=== PATIENT | male | born 1990 | race Two or more races ===

== ENCOUNTER 2019-03-31 19:57 | Emergency (ER) | payer MEDICAID ==
[~2019-03-31] VITALS: Ht 162.6 cm; Wt 71.8 kg
[2019-03-31 20:03] VITALS: BP 131/95
[2019-03-31] MEDS ORDERED: AZITHROMYCIN 500 MG TABLET PO ONE (20:30)
[2019-03-31] MEDS ORDERED: CEFTRIAXONE 250 MG IM ONE (20:30)
[2019-03-31] MEDS ORDERED: CEFTRIAXONE 250 MG ONE (20:31)
[2019-03-31] MEDS ORDERED: AZITHROMYCIN 500 MG TABLET ONE (20:31)
== END 2019-03-31 21:09 | disposition home or self-care (01) ==
LOC: ED 21:03
DX: Z20.2 Contact with and (suspected) exposure to infections with a predominantly sexual mode of transmission (principal)
CPT/HCPCS: 96372; 99283; J0696

== ENCOUNTER 2020-07-03 00:45 | Emergency (ER) | payer SELFPAY ==
[~2020-07-03] VITALS: Ht 162.6 cm; Wt 61.9 kg
[2020-07-03 00:48] VITALS: BP 137/82
[2020-07-03] MEDS ORDERED: ONDANSETRON 2MG/ML, 2ML ONE (01:17)
[2020-07-03] MEDS ORDERED: MORPHINE SULFATE 4 MG/ML, 1ML ONE (01:18)
--- NOTE | 2020-07-03 01:22 | NUR ---
pt in bed, c/o pain to abdomen, both sides lower abdomen. pt a&ox4, in bed, with call light at bedside. piv to right hand started x1 attempt with 18g, and pt tolerated well. blood drawn and sent to lab at same time. pt medicated for pain and nausea and tolerated meds well.
[2020-07-03 01:24] LABS: BASOPHILS % (AUTO) 1 % (0-1); EOSINOPHILS % (AUTO) 0 % (1-7); LYMPHOCYTES % (AUTO) 21 % (22-44); MEAN CORPUSCULAR HEMOGLOBIN 29.8 pg (27.5-34.5); MEAN PLATELET VOLUME 8.6 fL (7.4-10.4); MONOCYTES % (AUTO) 5 % (2-9); NEUTROPHILS % (AUTO) 73 % (42-75); PLATELET COUNT 215 x10^3/uL (130-400); RED BLOOD COUNT 4.74 x10^6/uL (4.38-5.82); RED CELL DISTRIBUTION WIDTH 13.8 % (9.4-14.8)
--- NOTE | 2020-07-03 01:24 | NUR ---
pt provided a urinal to collect urine for sample. NS 1 liter started too. iv site intact, flat,no redness or swelling.
[2020-07-03 01:26] LABS: MD NO
--- NOTE | 2020-07-03 01:29 | NUR ---
US tech to bedside to conduct abdominal ultrasound exam.
[2020-07-03] MEDS ORDERED: ONDANSETRON 2MG/ML, 2ML IVPush ONE (01:30)
[2020-07-03] MEDS ORDERED: MORPHINE SULFATE 4 MG/ML, 1ML IVPush PRN (01:30)
[2020-07-03] MEDS ORDERED: SODIUM CHLORIDE 0.9% 1,000ML IVBOLUS ONE (01:30)
[2020-07-03 01:33] LABS: ALANINE AMINOTRANSFERASE 40 U/L (12-78); ALBUMIN 3.9 g/dL (3.4-5.0); ANION GAP 8 mmol/L (5-15); CALCIUM 8.7 mg/dL (8.5-10.1); CHLORIDE 108 mmol/L (98-107); CREATININE 0.91 mg/dL (0.7-1.3)
[2020-07-03 01:36] LABS: ALKALINE PHOSPHATASE 57 U/L (45-117); BILIRUBIN,TOTAL 0.3 mg/dL (0.2-1.0); TOTAL PROTEIN 7.4 g/dL (6.4-8.2)
--- NOTE | 2020-07-03 02:29 | NUR ---
urine sent to lab
[2020-07-03 02:36] LABS: MICROSCOPIC NOT IND
--- NOTE | 2020-07-03 02:44 | NUR ---
ALL RESULTS BACK CHART UP FOR RECHECK
[2020-07-03] MEDS ORDERED: MAALOX/HYOSCYAMINE/LIDOCAINE 45 ML BTL ONE (03:15)
[2020-07-03] MEDS ORDERED: MAALOX/HYOSCYAMINE/LIDOCAINE 45 ML BTL PO ONE (03:30)
--- NOTE | 2020-07-03 03:37 | NUR ---
Patient/Caregiver given discharge instructions and they have confirmed that they understand the instructions. Patient ambulatory with steady gait.
== END 2020-07-03 03:38 | disposition home or self-care (01) ==
LOC: ED 02:00
DX: K29.20 Alcoholic gastritis without bleeding (principal); F10.10 Alcohol abuse, uncomplicated; M54.9 Dorsalgia, unspecified; Y90.9 Presence of alcohol in blood, level not specified
CPT/HCPCS: 36415; 76700; 80053; 81003; 83690; 85025; 96361; 96374; 96375; 99284; J2270; J2405; J7030

== ENCOUNTER 2020-09-17 14:15 | Emergency (ER) | payer MEDICAID, OTHER ==
[~2020-09-17] VITALS: Ht 162.6 cm; Wt 57.8 kg
--- NOTE | 2020-09-17 14:39 | NUR ---
MANAGER WOMEN: PT PROVIDED URINE SAMPLE. UA COLLECTED AND SENT TO LAB.
[2020-09-17 15:05] LABS: AMPHETAMINE SCREEN, URINE Positive (Negative); BARBITURATE SCREEN, URINE Negative (Negative); BENZODIAZEPINE SCREEN, URINE Negative (Negative); CANNABINOID SCREEN, URINE Positive (Negative); COCAINE SCREEN, URINE Negative (Negative); METHADONE SCREEN, URINE Negative (Negative); OPIATE SCREEN, URINE Negative (Negative)
[2020-09-17 15:15] LABS: MICROSCOPIC INDICATED
--- NOTE | 2020-09-17 15:15 | NUR ---
ELEVATOR CONSTRUCTOR HELPER: PT TO ROOM FROM [facility]
[2020-09-17 15:18] LABS: ALBUMIN 5.2 g/dL (3.4-5.0); ANION GAP 8 mmol/L (5-15); CALCIUM 9.9 mg/dL (8.5-10.1); CHLORIDE 105 mmol/L (98-107)
[2020-09-17 15:20] LABS: BASOPHILS % (AUTO) 1 % (0-1); EOSINOPHILS % (AUTO) 0 % (1-7); LYMPHOCYTES % (AUTO) 25 % (22-44); MEAN CORPUSCULAR HGB CONC 34.3 g/dL (33.2-36.2); MONOCYTES % (AUTO) 12 % (2-9); NEUTROPHILS % (AUTO) 63 % (42-75); PLATELET COUNT 246 x10^3/uL (130-400); RED BLOOD COUNT 5.67 x10^6/uL (4.38-5.82); RED CELL DISTRIBUTION WIDTH 13.3 % (9.4-14.8)
[2020-09-17 15:22] LABS: MD NO
[2020-09-17 15:23] LABS: ALANINE AMINOTRANSFERASE 26 U/L (12-78); ALKALINE PHOSPHATASE 54 U/L (45-117); BILIRUBIN,TOTAL 0.8 mg/dL (0.2-1.0); CREATININE 1.12 mg/dL (0.7-1.3); TOTAL PROTEIN 9.1 g/dL (6.4-8.2)
[2020-09-17 16:05] VITALS: BP 132/68
== END 2020-09-17 16:07 | disposition home or self-care (01) ==
LOC: ED 16:00
DX: F15.10 Other stimulant abuse, uncomplicated (principal); F41.9 Anxiety disorder, unspecified; R51.9 Headache, unspecified; R42 Dizziness and giddiness; R11.2 Nausea with vomiting, unspecified; R00.2 Palpitations; R10.9 Unspecified abdominal pain
CPT/HCPCS: 36415; 80053; 80307; 81001; 82962; 85025; 87086; 99283